=== PATIENT | male | born 1995 | race Caucasian/White ===

== ENCOUNTER 2018-02-01 23:14 | Emergency (ER) | payer OTHER ==
[2018-02-01] MEDS ORDERED: Metoclopramide IV* 5 MG/ML 2 ML VIAL IV ONE (23:40)
[2018-02-01] MEDS ORDERED: Ketorolac INJ* 30 MG/ML 1 ML VIAL IV ONE (23:40)
[2018-02-01] MEDS ORDERED: NS 0.9% 1000 ML* 1,000 ML IV ONE (23:40)
[2018-02-01] MEDS ORDERED: fentaNYL* 50 MCG/ML 2 ML VIAL (100 MCG VIAL) IV ONE (23:40)
[2018-02-02 00:12] LABS: ABS Basophils 0.1 10^3/ul (0-0.2); ABS Eosinophils 0.1 10^3/ul (0-0.6); ABS Lymphocytes 3.5 10^3/ul (1.0-4.8); ABS Monocytes 1.5 10^3/ul (0-0.8); ABS Neutrophils 9.8 10^3/ul (1.5-7.7); ABS Nucleated RBC 0 10^3/ul; Eosinophil % 0.5 % (0-6); Hematocrit 41 % (42-52); Hemoglobin 14.2 g/dl (14.0-18.0); Lymphocyte % 23.6 % (25-47); Mean Corpuscular HGB Conc 35 g/dl (31-36); Mean Corpuscular Hemoglobin 29 pg (27-31); Mean Corpuscular Volume 84 fL (80-94); Mean Platelet Volume 8.2 um3 (7.4-10.4); Nucleated Red Blood Cells % 0.1; Platelet Count 248 10^3/ul (150-450); Red Blood Count 4.91 10^6/ul (4.0-5.4); Red Cell Distribution Width 13 % (10.5-15)
[2018-02-02 00:27] LABS: EGFR Non-African American 91.3 (>60)
[2018-02-02 01:34] LABS: Urine Appearance Cloudy; Urine Blood 3+ (Negative); Urine Color Amber; Urine Ketones 2+ (Negative); Urine Protein 1+(30 mg/dL) (Negative); Urine Specific Gravity 1.029 (1.010-1.030); Urine Urobilinogen Negative (Negative)
--- NOTE | 2018-02-02 01:52 | ED ---
Lacey Caceres Rebecca, scribed for Essence Romero MD on 02/01/18 at 2342 . Abdominal Pain/Male - HPI Summary HPI Summary: Pt is a 22 y/o M who presents to ED due to abdominal pain. Sx began suddenly at 2230 tonight and is located in the LLQ with radiation to the L flank and L testicle. Pain is currently severe, ranked 10/10. Sx aggravated and alleviated by nothing. Additionally c/o N/V x1. No PMHx kidney stones. No PSHx. - History of Current Complaint Chief Complaint: EDAbdPain Stated Complaint: BACK AND ABD PAIN/VOMITING Time Seen by Provider: 02/01/18 23:35 Hx Obtained From: Patient Onset/Duration: Lasting Hours, Still Present Severity Currently: Severe Pain Intensity: 10 Pain Scale Used: 0-10 Numeric Location: Discrete At: LLQ Radiates: Yes Radiates to: Flank - Left, Other - Left testicle Aggravating Factor(s): Nothing Alleviating Factor(s): Nothing Associated Signs And Symptoms: Positive: Nausea, Vomiting - Allergies/Home Medications Allergies/Adverse Reactions: Allergies Allergy/AdvReac Type Severity Reaction Status Date / Time No Known Allergies Allergy Verified 05/30/14 16:06 PMH/Surg Hx/FS Hx/Imm Hx Endocrine/Hematology History: Denies: Hx Diabetes Cardiovascular History: Denies: Hx Congestive Heart Failure, Hx Hypertension Respiratory History: Reports: Hx Asthma History: Denies: Hx Kidney Stones, Hx Renal Disease Infectious Disease History: No Infectious Disease History: Denies: Traveled Outside the [place] in Last 30 Days - Family History Known Family History: Negative: Cardiac Disease - Social History Alcohol Use: Occasionally Substance Use Type: Reports: None Smoking Status (MU): Never Smoked Tobacco Review of Systems Negative: Fever Positive: Abdominal Pain, Vomiting, Nausea Positive: flank pain - Radiates to the left flank All Other Systems Reviewed And Are Negative: Yes Physical Exam - Summary Physical Exam Summary: VITAL SIGNS: Reviewed. GENERAL: ~Patient is a well-developed and nourished male who seems uncomfortable due to the pain. Patient is not in any acute respiratory distress. HEAD AND FACE: No signs of trauma. No ecchymosis, hematomas or skull depressions. No sinus tenderness. EYES: PERRLA, EOMI x 2, No injected conjunctiva, no nystagmus. EARS: Hearing grossly intact. Ear canals and tympanic membranes are within normal limits. MOUTH: Oropharynx within normal limits. NECK: Supple, trachea is midline, no adenopathy, no JVD, no carotid bruit, no c- spine tenderness, neck with full ROM. CHEST: Symmetric, no tenderness at palpation LUNGS: Clear to auscultation bilaterally. No wheezing or crackles. CVS: Regular rate and rhythm, S1 and S2 present, no murmurs or gallops appreciated. ABDOMEN: Soft, non-tender. No signs of distention. No rebound no guarding, and no masses palpated. Bowel sounds are normal. EXTREMITIES: FROM in all major joints, no edema, no cyanosis or clubbing. NEURO: Alert and oriented x 3. No acute neurological deficits. Speech is normal and follows commands. SKIN: Dry and warm Triage Information Reviewed: Yes Vital Signs On Initial Exam: Initial Vitals Temp Pulse Resp BP Pulse Ox 98 F 64 22 126/105 97 02/01/18 23:18 02/01/18 23:18 02/01/18 23:18 02/01/18 23:18 02/01/18 23:18 Vital Signs Reviewed: Yes Diagnostics - Vital Signs Vital Signs Temp Pulse Resp BP Pulse Ox 02/01/18 23:18 98 F 64 22 126/105 97 - Laboratory Result Diagrams: 02/02/18 00:04 02/02/18 00:04 Lab Statement: Any lab studies that have been ordered have been reviewed, and results considered in the medical decision making process. - CT CT Abd/Pel CT Interpretation: Positive (See Comments) - Obstructive uropathy. ED physician reviewed this report. Pending official report. CT Interpretation Completed By: Radiologist Re-Evaluation - Re-Evaluation First Eval Re-Evaluation Time: 00:49 Change: Improved Comment: Pt feels much better Abdominal Pain Fem Course/Dx - Course Assessment/Plan: Pt is a 22 y/o M who presents to ED due to acute onset abdominal pain since 2229 tonight, located in the LLQ with radiation to the L flank and L testicle. Pain is currently severe, ranked 10/10. Additionally c/o N/V x1. No PMHx kidney stones. No PSHx. Blood work and UA were done. Blood work results include WBC of 15.0. UA is 1+ for proteins, 2+ for ketones, 3+ for blood , 3+ for RBC and trace WBC. CT Abd/Pel read by radiology business education instructor as obstructive uropathy. I viewed the CT and it seemed like the stone was in the urinary bladder. In the ED course, pt received fentanyl, toradol, reglan and fluids. At this time, the pt is pain free and asymptomatic, consistent with that he passed the stone. Pt will be D/C to home with Dx of renal colic and right ureteral stone. He understands and agrees. - Diagnoses Provider Diagnoses: Renal colic, Right ureteral stone Discharge - Sign-Out/Discharge Documenting (check all that apply): Discharge/Admit/Transfer - Discharge - Discharge Plan Condition: Stable Disposition: HOME Patient Education Materials: Renal Colic (ED), Ureteral Stones (ED) Referrals: No Primary Care Phys,NOPCP [Primary Care Provider] - [facility] [Outside] - 3 Days Additional Instructions: RETURN TO ED FOR ANY NEW OR WORSENING SYMPTOMS. The documentation as recorded by the Lacey parr Rebecca accurately reflects the service I personally performed and the decisions made by me, Essence Romero MD.
[2018-02-02 02:00] VITALS: BP 120/81
--- NOTE | 2018-02-02 07:35 | RAD ---
INDICATION: Left lower quadrant pain COMPARISON: CT abdomen pelvis August 18, 2014 TECHNIQUE: Noncontrast axial source images were acquired from the level hemidiaphragms to the symphysis pubis as part of CT imaging for renal stone. Lung bases: The lung bases are clear. Liver: The liver is normal in size. Noncontrast imaging shows no evidence of a hepatic mass or ductal dilatation. Gallbladder: There are no calcified gallstones. There is no evidence of wall thickening or pericholecystic fluid.. Spleen: The spleen is normal in size. The noncontrast CT appearance is normal. Pancreas: Noncontrast imaging shows no pancreatic mass or ductal dilitation. Adrenal glands: No masses are identified. Kidneys/Bladder: There is a 1 to 2 mm stone at the left UVJ with mild obstructive findings. There are no other consultations of urinary significance. Adenopathy: There is no evidence of intraperitoneal or retroperitoneal adenopathy. Evaluation is limited without oral contrast. Fluid collections: There are no free or localized fluid collections. Vessels: The aorta and iliac vessels are normal in caliber. There are no significant atherosclerotic changes. The IVC appears normal Pelvic organs: The uterus and adnexa appear normal GI tract: Evaluation of the bowel is limited without oral contrast. The stomach, small bowel, and lower GI tract appear grossly normal. There are no obstructive findings. The appendix is visualized and appears normal. Soft tissues: No soft tissue abnormalities of the extraperitoneal abdomen or pelvis are identified. Osseous structures: There are no acute osseous findings. IMPRESSION: 1-2 MM LEFT UVJ CALCULUS WITH MILD OBSTRUCTION .
== END 2018-02-02 01:59 | disposition home or self-care (01) ==
LOC: ED 23:14
DX: N20.1 Calculus of ureter (principal)
CPT/HCPCS: 36415; 74176; 80053; 81003; 81015; 83690; 83735; 85025; 86140; 87086; 96360; 96374; 96375; 99284; J1885; J2765; J3010

== ENCOUNTER 2018-02-03 12:40 | Emergency (ER) | payer OTHER ==
[2018-02-03] MEDS ORDERED: NS 0.9% 1000 ML* 2,000 ML IV ONE (13:19)
[2018-02-03] MEDS ORDERED: Ketorolac INJ* 30 MG/ML 1 ML VIAL IV ONE (13:19)
[2018-02-03 13:33] LABS: ABS Basophils 0 10^3/ul (0-0.2); ABS Eosinophils 0.1 10^3/ul (0-0.6); ABS Lymphocytes 2.6 10^3/ul (1.0-4.8); ABS Monocytes 1.1 10^3/ul (0-0.8); ABS Nucleated RBC 0 10^3/ul; Eosinophil % 0.6 % (0-6); Hematocrit 37 % (42-52); Hemoglobin 12.6 g/dl (14.0-18.0); Lymphocyte % 29.5 % (25-47); Mean Corpuscular HGB Conc 34 g/dl (31-36); Mean Corpuscular Hemoglobin 29 pg (27-31); Mean Corpuscular Volume 84 fL (80-94); Nucleated Red Blood Cells % 0; Platelet Count 208 10^3/ul (150-450); Red Blood Count 4.43 10^6/ul (4.0-5.4); Red Cell Distribution Width 13 % (10.5-15); White Blood Count 8.9 10^3/ul (3.5-10.8)
[2018-02-03 13:48] LABS: EGFR Non-African American 89.3 (>60)
--- NOTE | 2018-02-03 14:08 | RAD ---
CLINICAL HISTORY: Right flank pain, history of recurrent renal calculi COMPARISON: February 01, 2018 TECHNIQUE: Multiple contiguous axial CT scans were obtained of the abdomen and pelvis, without intravenous contrast enhancement. Coronal and sagittal multiplanar reformations are submitted for review. Oral contrast was not administered. FINDINGS: Neck are limited study noncontrast LUNG BASES: The lung bases are clear. LIVER: The liver is normal in shape, size, contour, and attenuation. BILE DUCTS: There is no intrahepatic or extrahepatic biliary dilatation. GALLBLADDER: The gallbladder is normal, without pericholecystic inflammatory change. PANCREAS: The pancreas is normal, without mass or ductal dilatation. SPLEEN: Normal in size and appearance. UPPER GI TRACT: Evaluation of the gastrointestinal tract is limited by incomplete gastric distention. The upper GI tract is unremarkable. SMALL BOWEL AND MESENTERY: The small bowel is normal in contour, course, and caliber. There is no obstruction or dilatation. COLON: The colon is normal in contour, course, caliber. There is no pericolonic inflammatory change. ADRENALS: Normal bilaterally. KIDNEYS: Again noted is a 0.2 cm calculus of the left UVJ. There is mild pelviectasis and hydroureter. BLADDER: The bladder is incompletely distended. Again noted is a 0.2 cm calculus of the left UVJ. PELVIC ORGANS: The prostate gland is normal. The seminal vesicles are symmetric. AORTA: The aorta is normal. IVC: Unremarkable LYMPH NODES: There is no lymphadenopathy by size criteria. ABDOMINAL WALL: There is no evidence for abdominal wall hernia. BONES AND SOFT TISSUES: Unremarkable OTHER: None IMPRESSION: AGAIN NOTED IS A 0.2 CM CALCULUS OF THE LEFT UVJ. THERE IS MINIMAL LEFT-SIDED HYDRONEPHROSIS.
[2018-02-03] MEDS: Ketorolac INJ* 60 MG/2 ML VIAL IM ONE ×2 (14:12→14:14)
[2018-02-03] MEDS ORDERED: Tamsulosin CAP* 0.4 MG PO ONE (14:26)
[2018-02-03] MEDS ORDERED: oxyCODONE/Acetamin 5/325 MG* TAB PO ONE (14:26)
[2018-02-03 15:07] LABS: Urine Appearance Clear; Urine Blood 2+ (Negative); Urine Color Yellow; Urine Ketones Trace (Negative); Urine Protein 1+(30 mg/dL) (Negative); Urine Urobilinogen Negative (Negative)
--- NOTE | 2018-02-03 15:51 | ED ---
Lacey Caceres Rebecca, scribed for ElizabethJason on 02/03/18 at 1315 . Abdominal Pain/Male - HPI Summary HPI Summary: Pt is a 22 y/o M who presents to ED c/o flank and abdominal pain. Sx have been present since Saturday night (2 days ago) when he suddenly began experiencing sharp pain. Pain is in the LLQ and L flank and has been intermittent and waxing and waning in intensity since onset. Currently, pain is mild ranked 2/10 but has been as high as an 8/10. Has taken 3 hydrocodone today. Sx alleviated by hydrocodone and aggravated by nothing. Denies hematuria and fever. Pt was seen on Saturday night (2 days ago) for similar symptoms during which he had a CT Abd /Pel showing a 1-2 mm left UVJ calculus with mild obstruction. - History of Current Complaint Chief Complaint: EDFlankPain Stated Complaint: LT SIDE ABD PAIN Time Seen by Provider: 02/03/18 12:55 Hx Obtained From: Patient Onset/Duration: Still Present Timing: Intermittent Severity Initially: Severe Severity Currently: Mild Pain Intensity: 2 Pain Scale Used: 0-10 Numeric Location: Discrete At: LLQ, Flank - Left Aggravating Factor(s): Nothing Alleviating Factor(s): Medications - Hydrocodone Associated Signs And Symptoms: Negative: Fever Similar Episode/Dx As:: 2 days ago - Allergies/Home Medications Allergies/Adverse Reactions: Allergies Allergy/AdvReac Type Severity Reaction Status Date / Time No Known Allergies Allergy Verified 02/03/18 12:42 Home Medications: Home Medications Citalopram TAB* [CeleXA TAB*] 40 mg PO DAILY 02/03/18 [History Confirmed ] Dutasteride 0.5 mg PO DAILY 02/03/18 [History Confirmed 02/03/18] Propranolol TAB* [Inderal TAB*] 10 mg PO BID 02/03/18 [History Confirmed ] Wellbutrin TAB* 1 tab PO DAILY 02/03/18 [History Confirmed 02/03/18] PMH/Surg Hx/FS Hx/Imm Hx Endocrine/Hematology History: Denies: Hx Diabetes Cardiovascular History: Denies: Hx Congestive Heart Failure, Hx Hypertension Respiratory History: Reports: Hx Asthma History: Denies: Hx Kidney Stones, Hx Renal Disease Infectious Disease History: No Infectious Disease History: Denies: Traveled Outside the [place] in Last 30 Days - Family History Known Family History: Negative: Cardiac Disease - Social History Alcohol Use: Occasionally Substance Use Type: Reports: None Smoking Status (MU): Never Smoked Tobacco Review of Systems Negative: Fever Positive: Abdominal Pain Positive: flank pain - Left. Negative: hematuria All Other Systems Reviewed And Are Negative: Yes Physical Exam - Summary Physical Exam Summary: Appearance: Well appearing, no pain distress Skin: warm, dry, reflects adequate perfusion Head/face: normal Eyes: EOMI, GM ENT: normal Neck: supple, non-tender Respiratory: CTA, breath sounds present Cardiovascular: RRR, pulses symmetrical ~ Abdomen: mild tenderness in the LLQ, soft Bowel: present Musculoskeletal: normal, strength/ROM intact Neuro: normal, sensory motor intact, A&Ox3 Triage Information Reviewed: Yes Vital Signs On Initial Exam: Initial Vitals Temp Pulse Resp BP Pulse Ox 98.3 F 72 14 139/82 97 02/03/18 12:43 02/03/18 12:43 02/03/18 12:43 02/03/18 12:43 02/03/18 12:43 Vital Signs Reviewed: Yes Diagnostics - Vital Signs Vital Signs Temp Pulse Resp BP Pulse Ox 02/03/18 12:43 98.3 F 72 14 139/82 97 - Laboratory Lab Results: Lab Results 02/03/18 02/03/18 02/03/18 Range/Units 13:24 13:24 14:51 WBC 8.9 (3.5-10.8) 10^3/ul RBC 4.43 (4.0-5.4) 10^6/ul Hgb 12.6 L (14.0-18.0) g/dl Hct 37 L (42-52) % MCV 84 (80-94) fL MCH 29 (27-31) pg MCHC 34 (31-36) g/dl RDW 13 (10.5-15) % Plt Count 208 (150-450) 10^3/ul MPV 8.0 (7.4-10.4) um3 Neut % (Auto) 56.6 (38-83) % Lymph % (Auto) 29.5 (25-47) % Price % (Auto) 12.8 H (0-7) % Eos % (Auto) 0.6 (0-6) % Baso % (Auto) 0.5 (0-2) % Absolute Neuts (auto) 5.0 (1.5-7.7) 10^3/ul Absolute Lymphs (auto) 2.6 (1.0-4.8) 10^3/ul Absolute Monos (auto) 1.1 H (0-0.8) 10^3/ul Absolute Eos (auto) 0.1 (0-0.6) 10^3/ul Absolute Basos (auto) 0 (0-0.2) 10^3/ul Absolute Nucleated RBC 0 10^3/ul Nucleated RBC % 0 Sodium 137 L (139-145) mmol/L Potassium 3.8 (3.5-5.0) mmol/L Chloride 108 (101-111) mmol/L Carbon Dioxide 26 (22-32) mmol/L Anion Gap 3 (2-11) mmol/L BUN 15 (6-24) mg/dL Creatinine 1.04 (0.67-1.17) mg/dL Est GFR ( Amer) 114.8 (>60) Est GFR (Non-Af Amer) 89.3 (>60) BUN/Creatinine Ratio 14.4 (8-20) Glucose 109 H (70-100) mg/dL Calcium 9.0 (8.6-10.3) mg/dL Total Bilirubin 0.80 (0.2-1.0) mg/dL AST 12 L (13-39) U/L ALT 9 (7-52) U/L Alkaline Phosphatase 82 (34-104) U/L Total Protein 5.9 L (6.4-8.9) g/dL Albumin 3.6 (3.2-5.2) g/dL Globulin 2.3 (2-4) g/dL Albumin/Globulin Ratio 1.6 (1-3) Lipase 37 (11.0-82.0) U/L Urine Color Yellow Urine Appearance Clear Urine pH 5.0 (5-9) Ur Specific [place] 1.030 (1.010-1.030) Urine Protein 1+(30 mg/dl) A (Negative) Urine Ketones Trace A (Negative) Urine Blood 2+ A (Negative) Urine Nitrate Negative (Negative) Urine Bilirubin Negative (Negative) Urine Urobilinogen Negative (Negative) Ur Leukocyte Esterase Negative (Negative) Urine WBC (Auto) Trace(0-5/hpf) (Absent) Urine RBC (Auto) 2+(6-10/hpf) A (Absent) Calcium Oxalate Crystal Present A (Absent) Urine Bacteria Absent (Absent) Urine Glucose Negative (Negative) Result Diagrams: 02/03/18 13:24 02/03/18 13:24 Lab Statement: Any lab studies that have been ordered have been reviewed, and results considered in the medical decision making process. - CT CT Abd/Pel CT Interpretation: Positive (See Comments) - AGAIN NOTED IS A 0.2 CM CALCULUS OF THE LEFT UVJ. THERE IS MINIMAL LEFT-SIDED HYDRONEPHROSIS. ED physician reviewed this report. CT Interpretation Completed By: Radiologist Re-Evaluation - Re-Evaluation First Eval Re-Evaluation Time: 15:36 Comment: Discussed results and D/C plan with the pt and his mother. Abdominal Pain Fem Course/Dx - Course Assessment/Plan: Pt is a 22 y/o M who presents to ED c/o acute onset L flank and LLQ abdominal pain for 2 days, intermittent and waxing and waning in intesnity since onset. Currently, pain is mild ranked 2/10 but has been as high as an 8/10. Has taken 3 hydrocodone today. Sx alleviated by hydrocodone. Denies hematuria and fever. Pt was seen on Saturday night (2 days ago) for similar symptoms during which he had a CT Abd/Pel showing a 1-2 mm left UVJ calculus with mild obstruction. Blood work was done. CT Abd/Pel done today shows a .2 cm left UVJ calculus with minimal left-sided hydronephrosis. In the ED course pt received Toradol, Flomax, percocet and fluids. Pt will be D/C to home with Dx of renal calculi with a follow up with . He understands and agrees. - Diagnoses Differential Diagnosis/HQI/PQRI: Ureteral Stone, Urinary Tract Infection Provider Diagnoses: Renal calculi Discharge - Sign-Out/Discharge Documenting (check all that apply): Discharge/Admit/Transfer - Discharge - Discharge Plan Condition: Stable Disposition: HOME Prescriptions: Ondansetron TAB* [Zofran 4 MG Tab*] 4 mg PO TID #20 tab MDD 3 Oxycodone HCl/Acetaminophen [Percocet 5-325 mg Tablet] 1 each PO TID #12 tablet MDD 3 Tamsulosin HCl [Flomax] 0.4 mg PO ONCE #15 cap Patient Education Materials: Kidney Stones (ED) Referrals: No Primary Care Phys,NOPCP [Primary Care Provider] - Kojo Moore MD [Medical Doctor] - 3 Days Additional Instructions: RETURN TO ED FOR ANY NEW OR WORSENING SYMPTOMS. - Billing Disposition and Condition Condition: STABLE Disposition: HOME The documentation as recorded by the Lacey parr Rebecca accurately reflects the service I personally performed and the decisions made by Elizabeth hill Emmanuel.
[2018-02-03] MEDS ORDERED: Ondansetron ODT TAB* 4 MG PO ONE (15:53)
[2018-02-03] MEDS ORDERED: Ondansetron ODT TAB* 4 MG ONE (15:53)
[2018-02-03 16:05] VITALS: BP 128/84
== END 2018-02-03 16:04 | disposition home or self-care (01) ==
LOC: ED 12:40
DX: N13.2 Hydronephrosis with renal and ureteral calculous obstruction (principal); J45.909 Unspecified asthma, uncomplicated
CPT/HCPCS: 36415; 74176; 80053; 81003; 81015; 83690; 85025; 87086; 96372; 96374; 99283; A9270-GY; J1885

== ENCOUNTER 2019-11-18 19:58 | Emergency (ER) | payer SELFPAY ==
[2019-11-18] MEDS ORDERED: Ondansetron INJ* 2 MG/ML VIAL IV ONE (21:22)
[2019-11-18] MEDS ORDERED: NS 0.9% 1000 ML** 2,000 ML IV ONE (21:22)
--- NOTE | 2019-11-18 21:26 | ED ---
GI/ HPI - HPI Summary HPI Summary: 24 year old M arriving via private car to [facility] complains of nausea, vomiting, diarrhea x3 hours. Patient felt fine this morning and all day. He developed n/v/ d a few hours ago. No abdominal pain. Symptoms aggravated by nothing. Symptoms alleviated by nothing. No abdominal surgical hx. Medications reviewed. Allergies noted. - History of Current Complaint Chief Complaint: EDNauseaVomitDiarrh Time Seen by Provider: 11/18/19 21:20 Stated Complaint: VOMITING Hx Obtained From: Patient Onset/Duration: Started Hours Ago - 3, Still Present Timing: Constant Current Severity: None Pain Intensity: 0 Aggravating Factor(s): Nothing Alleviating Factor(s): Nothing - Allergy/Home Medications Allergies/Adverse Reactions: Allergies Allergy/AdvReac Type Severity Reaction Status Date / Time No Known Allergies Allergy Verified 11/18/19 20:08 Home Medications: Home Medications Citalopram TAB* [CeleXA TAB*] 40 mg PO DAILY 02/03/18 [History Confirmed ] Dutasteride 0.5 mg PO DAILY 02/03/18 [History Confirmed 02/03/18] Ondansetron TAB* [Zofran 4 MG Tab*] 4 mg PO TID #20 tab MDD 3 02/03/18 [Rx] Oxycodone HCl/Acetaminophen [Percocet 5-325 mg Tablet] 1 each PO TID #12 tablet MDD 3 02/03/18 [Rx] Propranolol 10 mg TAB [Inderal TAB*] 10 mg PO BID 02/03/18 [History Confirmed ] Tamsulosin HCl [Flomax] 0.4 mg PO ONCE #15 cap 02/03/18 [Rx] Wellbutrin TAB* 1 tab PO DAILY 02/03/18 [History Confirmed 02/03/18] Ondansetron ODT TAB* [Zofran 4 MG Odt TAB*] 8 mg PO Q6H PRN #12 tab.odt [Rx] PMH/Surg Hx/FS Hx/Imm Hx Endocrine/Hematology History: Denies: Hx Diabetes Cardiovascular History: Denies: Hx Congestive Heart Failure, Hx Hypertension Respiratory History: Reports: Hx Asthma History: Denies: Hx Kidney Stones, Hx Renal Disease - Surgical History Surgical History: None Infectious Disease History: No Infectious Disease History: Denies: Traveled Outside the [place] in Last 30 Days - Family History Known Family History: Negative: Cardiac Disease - Social History Alcohol Use: Occasionally Substance Use Type: Reports: None Hx Tobacco Use: No Smoking Status (MU): Never Smoked Tobacco Review of Systems Negative: Fever Positive: Abdominal Pain, Vomiting, Diarrhea, Nausea All Other Systems Reviewed And Are Negative: Yes Physical Exam - Summary Physical Exam Summary: Appearance: Well-appearing, Well-nourished, lying in bed comfortably Skin: Warm, dry, no obvious rash Eyes: sclera anicteric, no conjunctival pallor HENT: mucous membranes moist, pharynx appears normal Neck: Supple, nontender Respiratory: Clear to auscultation, no signs of respiratory distress Cardiovascular: Normal S1, S2. No murmurs. Normal distal pulses in tibial and radial bilaterally. Abdomen: Soft, nontender, normal active bowel sounds present Musculoskeletal: Normal, Strength/ROM Intact Neurological: A&Ox3, awake and alert, mentation is normal, speech is fluent and appropriate Psychiatric: affect is normal, does not appear anxious or depressed Triage Information Reviewed: Yes Vital Signs On Initial Exam: Initial Vitals Temp Pulse Resp BP Pulse Ox 99.5 F 90 16 103/85 99 11/18/19 19:59 11/18/19 19:59 11/18/19 19:59 11/18/19 19:59 11/18/19 19:59 Vital Signs Reviewed: Yes Procedures - Sedation Patient Received Moderate/Deep Sedation with Procedure: No Diagnostics - Vital Signs Vital Signs Temp Pulse Resp BP Pulse Ox 11/18/19 19:59 99.5 F 90 16 103/85 99 - Laboratory Lab Statement: Any lab studies that have been ordered have been reviewed, and results considered in the medical decision making process. Re-Evaluation - Re-Evaluation First Eval Re-Evaluation Time: 00:21 Change: Improved - patient agrees to d/c GIGU Course/Dx - Course Course Of Treatment: 24 y/o M presents with nausea, vomiting, diarrhea x3 hours. Patient was feeling fine until he developed n/v/d a few hours ago. No abdominal pain. Physical exam unremarkable. In the ED course, the patient was given normal saline fluids and Zofran. Patient feels better after receiving Zofran. He no longer has n/v/d. His symptoms have completely resolved. Patient will be discharged home with prescription for Zofran and follow up from [facility] if needed. Patient was instructed to return to Emergency Department for new or worsening symptoms. Patient understands and is agreeable to this plan. - Diagnoses Provider Diagnoses: Acute gastroenteritis Discharge ED - Sign-Out/Discharge Documenting (check all that apply): Patient Departure - Discharge Plan Condition: Good Disposition: HOME Prescriptions: Ondansetron ODT TAB* [Zofran 4 MG Odt TAB*] 8 mg PO Q6H PRN #12 tab.odt PRN Reason: Nausea Patient Education Materials: Clear Liquid Diet (ED), Gastroenteritis (ED) Referrals: [facility] [Outside] - If Needed - Billing Disposition and Condition Condition: GOOD Disposition: Home - Attestation Statements Document Initiated by Avis: Yes Documenting Scribe: Sheeba Patel Provider For Whom Avis is Documenting (Include Credential): Randy Guevara MD Scribe Attestation: Sheeba Caceres, scribed for Randy Guevara MD on 11/20/19 at 0230. Scribe Documentation Reviewed: Yes Provider Attestation: The documentation as recorded by the Sheeba parr accurately reflects the service I personally performed and the decisions made by , Randy Guevara MD Status of Scribe Document: Viewed
[2019-11-18] MEDS ORDERED: Ondansetron ODT TAB* 4 MG SL ONE (23:23)
[2019-11-19] MEDS ORDERED: Ondansetron ODT TAB* 4 MG SL ONE (00:17)
[2019-11-19] MEDS ORDERED: PROCHLORPERAZINE INJ 5 MG/ML 2 ML VIAL IV ONE (00:46)
[2019-11-19 02:37] VITALS: BP 116/75
== END 2019-11-19 01:30 | disposition home or self-care (01) ==
LOC: ED 19:58
DX: K52.9 Noninfective gastroenteritis and colitis, unspecified (principal); R11.2 Nausea with vomiting, unspecified; R10.9 Unspecified abdominal pain; J45.909 Unspecified asthma, uncomplicated; Z79.899 Other long term (current) drug therapy
CPT/HCPCS: 96361; 96374; 96375; 99284; A9270-GY; J0780; J2405